=== PATIENT | female | born 1985 | race Caucasian/White ===

== ENCOUNTER 2019-03-19 11:37 | Emergency (ER) | payer BC ==
[2019-03-19 11:58] VITALS: BP 116/62
--- NOTE | 2019-03-19 12:43 | ER Document Report ---
HPI - HPI Patient complains to provider of: anxiety Time Seen by Provider: 03/19/19 12:42 Pain Level: Denies - REPRODUCTIVE Reproductive: DENIES: : Vertical Provider Document - INFECTION CONTROL TRAVEL OUTSIDE OF THE [place] IN LAST 30 DAYS: No Course - Vital Signs Vital signs: Temp Pulse Resp BP Pulse Ox 97.4 F 76 64 H 116/62 100 03/19/19 11:57 03/19/19 11:57 03/19/19 11:57 03/19/19 11:57 03/19/19 11:57 Discharge - Discharge Instructions: Anxiety ([facility]) Referrals: LOCALMD,NO [Primary Care Provider] - Follow up as needed
--- NOTE | 2019-03-19 13:18 | ER Document Report ---
ED Medical Screen (RME) - General Chief Complaint: Anxiety Stated Complaint: ANXIETY, possible SI, syncope Time Seen by Provider: 03/19/19 12:42 Primary Care Provider: INDU BARRAZA [Primary Care Provider] - Follow up as needed Mode of Arrival: Ambulatory Information source: Patient Notes: 33-year-old female who comes in stating she syncopized and was found on the grecia or by her father she lives with her bedside. She states she has had a panic attack secondary to something being wrong mechanically with her car and she not been allowed to drive to work today and secondary to that she would lose money not be able to pay her bills. She states she has passed out before in the past when she has these panic attacks however never sought care. She was having some shortness of breath. She has never been on anxiety medication. She has recently established with a psychiatrist. She also states that she felt a little suicidal this morning however she had no plan. She has no prior history of SI/HI. No visual auditory hallucinations. No inpatient psych history. No history of cutting. Denies intoxication or . She does feel safe at home. I did perform a brief triage exam and the patient will be seen by another provider in the main ED department as she was in super track today. Please refer to their note for further details of the visit. I did order basic triage labs. TRAVEL OUTSIDE OF THE [place] IN LAST 30 DAYS: No - HPI Onset: This morning - Related Data Allergies/Adverse Reactions: No Known Drug Allergies Allergy (Verified 03/19/19 11:42) Past Medical History - General Information source: Patient, Parent Physical Exam - Vital signs Vitals: Temp Pulse Resp BP Pulse Ox 97.4 F 76 64 H 116/62 100 03/19/19 11:57 03/19/19 11:57 03/19/19 11:57 03/19/19 11:57 03/19/19 11:57 repeat RR is 32 in room - General In distress: None - HEENT Head: Normocephalic - pt has purplish/blue hair and eyebrows. Conjunctiva: Normal - Respiratory Respiratory status: No respiratory distress Breath sounds: Normal - Cardiovascular Rhythm: Regular Heart sounds: Normal auscultation Normal capillary refill: Yes Course - Re-evaluation Re-evalutation: 03/19/19 13:17 will send patient to main ED for further work-up. Ordered basic labs. Please refer to other providers note for further details of the visit. This was my only involvement in patient care. - Vital Signs Vital signs: Temp Pulse Resp BP Pulse Ox 97.4 F 76 64 H 116/62 100 03/19/19 11:57 03/19/19 11:57 03/19/19 11:57 03/19/19 11:57 03/19/19 11:57 Doctor's Discharge - Discharge Clinical Impression: Suicidal ideation Syncope Qualifiers: Encounter type: initial encounter Condition: Good Instructions: Anxiety ([facility]) Referrals: LOCALMD,NO [Primary Care Provider] - Follow up as needed
--- NOTE | 2019-03-19 13:41 | RADIOLOGY REPORT (SQ) ---
EXAM DESCRIPTION: CHEST 2 VIEWS COMPLETED DATE/TIME: 03/19/2019 1:33 pm REASON FOR STUDY: syncope COMPARISON: None. EXAM PARAMETERS: NUMBER OF VIEWS: two views TECHNIQUE: Digital Frontal and Lateral radiographic views of the chest acquired. RADIATION DOSE: NA LIMITATIONS: none FINDINGS: LUNGS AND PLEURA: No opacities, masses or pneumothorax. No pleural effusion. MEDIASTINUM AND HILAR STRUCTURES: No masses or contour abnormalities. HEART AND VASCULAR STRUCTURES: Heart normal size. No evidence for failure. BONES: No acute findings. HARDWARE: None in the chest. OTHER: No other significant finding. IMPRESSION: No acute abnormality of the lungs. TECHNICAL DOCUMENTATION: JOB ID: [id number] [employer]- All Rights Reserved Reading location - IP/workstation name: [email or web address]
--- NOTE | 2019-03-19 13:49 | ER Document Report ---
ED Psych Disorder / Suicide <HELEN GALLO - Last Filed: 03/19/19 14:27> - General Mode of Arrival: Ambulatory Information source: Patient, Relative TRAVEL OUTSIDE OF THE [place] IN LAST 30 DAYS: No - HPI Patient complains to provider of: Other - Pt had an anxiety attack earlier this am after having some car issues that started last night. She had a syncopal episode afterward and when she came to, voiced some concerns about hurting herself. She states she no longer wants to hurt herself but still feels a great deal of anxiety. <WOJCIECH CMGRATH - Last Filed: 03/19/19 15:06> - General Chief Complaint: Anxiety Stated Complaint: ANXIETY, possible SI, syncope Time Seen by Provider: 03/19/19 12:42 Primary Care Provider: [facility] [Outside] - Follow up as needed LOCAL,INDU [NO LOCAL MD] - Follow up as needed - Related Data Allergies/Adverse Reactions: No Known Drug Allergies Allergy (Verified 03/19/19 11:42) Past Medical History - General Information source: Patient, Parent - Social History Smoking Status: Never Smoker Frequency of alcohol use: Rare Drug Abuse: None Family History: None Patient has suicidal ideation: No Patient has homicidal ideation: No Renal/ Medical History: Denies: Hx Peritoneal Dialysis <WOJCIECH MCGRATH - Last Filed: 03/19/19 15:06> Review of Systems - Review of Systems Constitutional: No symptoms reported EENT: No symptoms reported Cardiovascular: No symptoms reported Respiratory: No symptoms reported Gastrointestinal: No symptoms reported Musculoskeletal: No symptoms reported Neurological/Psychological: See HPI, Anxiety -: Yes All other systems reviewed and negative <WOJCIECH MCGRATH - Last Filed: 03/19/19 15:06> Physical Exam - General General appearance: Appears well In distress: None - HEENT Head: Normocephalic Mouth/Lips: Normal Mucous membranes: Normal Pharynx: Normal Neck: Normal - Respiratory Respiratory status: No respiratory distress Breath sounds: Normal - Cardiovascular Rhythm: Regular Heart sounds: Normal auscultation Murmur: No - Abdominal Inspection: Normal Tenderness: Nontender - Extremities General upper extremity: Normal inspection General lower extremity: Normal inspection - Neurological Neuro grossly intact: Yes Cognition: Normal Orientation: AAOx4 Speech: Normal Motor strength normal: LUE, RUE, LLE, RLE Sensory: Normal <WOJCIECH MCGRATH - Last Filed: 03/19/19 15:06> - Vital signs Vitals: Temp Pulse Resp BP Pulse Ox 97.4 F 76 64 H 116/62 100 03/19/19 11:57 03/19/19 11:57 03/19/19 11:57 03/19/19 11:57 03/19/19 11:57 Course - Laboratory Result Diagrams: 03/19/19 13:53 03/19/19 13:53 <HELEN GALLO - Last Filed: 03/19/19 14:27> - Laboratory Result Diagrams: 03/19/19 13:53 03/19/19 13:53 <WOJCIECH MCGRATH - Last Filed: 03/19/19 15:06> - Re-evaluation Re-evalutation: 03/19/19 15:03 Pt. was evaluated by mental health and found ok to be d/c'd on meds. Her dad will take her home. She denies SI and HI at time of d/c (WOJCIECH MCGRATH) - Vital Signs Vital signs: Temp Pulse Resp BP Pulse Ox 97.4 F 76 64 H 116/62 100 03/19/19 11:57 03/19/19 11:57 03/19/19 11:57 03/19/19 11:57 03/19/19 11:57 - Laboratory Laboratory results interpreted by me: 03/19/19 03/19/19 13:53 13:53 Hgb 11.3 L MCV 73 L MCH 22.7 L MCHC 31.1 L RDW 16.5 H Acetaminophen < 10 L Discharge <HELEN GALLO - Last Filed: 03/19/19 14:27> <WOJCIECH MCGRATH - Last Filed: 03/19/19 15:06> - Discharge Clinical Impression: Suicidal ideation, Anxiety Syncope Qualifiers: Encounter type: initial encounter Condition: Stable Disposition: HOME, SELF-CARE Instructions: Anxiety ([facility]) Additional Instructions: You have been evaluated by both medical and behavioral health providers while in the emergency department. You have been cleared from both acute medical and psychiatric services. Today you seemed to have anxiety which you built up. You mentioned these are times when you have passive suicidal thoughts. You are being provided medications to aid with depression and anxiety. You should take them as directed. You should continue therapy with Ms Mildred Downey and request referral for medication management. Therapy and medication management are beneficial together for anxiety treatment. Anxiety The physician feels that some of your health problems are being caused by anxiety. Anxiety affects your health in many ways. Anxiety alone can cause pa lpitations, sweats, chest pains, abdominal pains, shortness of breath, and headaches. It contributes to ulcer disease, high blood pressure, irritable bowel syndrome, and has been shown to cause flare-ups of many other diseases. Anxiety is not a simple disorder to treat. If the anxiety is due to recent life stresses, you may simply need time to "work through" the changes. If the anxiety is due to an underlying unhappiness with yourself or due to psychiatric disturbance, professional help will be needed. Your physician can refer you for further help if needed. Anti-anxiety medication is occasionally given if the stress is acute or if you are having trouble sleeping. Chronic or frequent use of these medications is not a good idea because the body becomes reliant on it, preventing you from dealing with life's normal stresses. DEPRESSION: Your evaluation reveals that you have mental depression. While symptoms may be vague, they often include disturbance of sleep, fatigue, loss of appetite, and general loss of interest in life. While depression may be a side effect of drugs, or a reaction to a major change in your life, many cases have no known cause. If depression is acute, and related to a major loss in your life, you can expect it to clear completely with time. If you have been depressed a long time, are prone to repeated bouts of depression or low mood, or have been thinking of suicide, get help. Depression can be treated with anti-depressant medication and counselling. Long-term depression will often take a few weeks to clear, even with appropriate medication. Follow-up care is important. SUICIDAL IDEATION: Suicidal ideation is a common medical term for thoughts about suicide, which may be as detailed as a formulated plan, without the suicidal act itself. Although most people who undergo suicidal ideation do not commit suicide, some go on to make suicide attempts. The range of suicidal ideation varies greatly from fleeting to detailed planning, role playing, and unsuccessful attempts. While thoughts about suicide are common, most people do not carry out serious actions to commit suicide. Based upon your evaluation and discussion with you, we do not believe you are currently at risk to act upon your thoughts of suicide. You have agreed to return to the Emergency Department, at any time, if you feel inclined to act upon your suicidal thoughts. FOLLOW-UP CARE: You are being provided prescriptions for Celexa 20MG daily for depression/anxiety/ruminating thoughts and Buspar 5MG twice a day for anxiety/calming effect/depression. You should take these medications as prescribed. You should follow up with your outpatient therapist as scheduled, sooner of possible, and request referral for medication management. You have been provided the [facility] Mobile Crisis number for crisis/talk therapy/linkage to other services and supports. If you experience worsening or a significant change in your symptoms, notify the physician immediately, utilize mobile crisis or return to the Emergency Department at any time for re-evaluation. Prescriptions: Buspirone HCl [Buspar 5 mg Tablet] 1 tab PO BID #30 tab Citalopram Hydrobromide [Celexa 20 mg Tablet] 20 mg PO DAILY #30 tablet Referrals: CHRISTI,NO [NO LOCAL MD] - Follow up as needed [facility] [Outside] - Follow up as needed
[2019-03-19 14:18] LABS: ABSOLUTE BASOPHILS # (AUTO) 0.1 10^3/uL (0.0-0.2); ABSOLUTE LYMPHOCYTES (AUTO) 1.5 10^3/uL (0.5-4.7); ABSOLUTE MONOCYTES (AUTO) 0.6 10^3/uL (0.1-1.4); ABSOLUTE NEUT (AUTO) 5.4 10^3/uL (1.7-8.2); BASOPHILS % (AUTO) 0.7 % (0-2); EOSINOPHILS % (AUTO) 0.3 % (0-6); HEMATOCRIT 36.5 % (36.0-47.0); HEMOGLOBIN 11.3 g/dL (12.0-15.5); LYMPHOCYTES % (AUTO) 19.6 % (13-45); MEAN CORPUSCULAR HEMOGLOBIN 22.7 pg (27.0-33.4); MEAN CORPUSCULAR HGB CONC 31.1 g/dL (32.0-36.0); MEAN CORPUSCULAR VOLUME 73 fl (80-97); MONOCYTES % (AUTO) 7.4 % (3-13); PLATELET COUNT 386 10^3/uL (150-450); RED CELL DISTRIBUTION WIDTH 16.5 % (11.5-14.0); TOTAL CELLS COUNTED % (AUTO) 100 %; WHITE BLOOD COUNT 7.5 10^3/uL (4.0-10.5)
[2019-03-19 14:48] LABS: ALANINE AMINOTRANSFERASE 25 U/L (9-52); ALBUMIN 4.5 g/dL (3.5-5.0); ALKALINE PHOSPHATASE 85 U/L (38-126); ANION GAP 9 (5-19); ASPARTATE AMINO TRANSFERASE 20 U/L (14-36); BILIRUBIN,DIRECT 0.2 mg/dL (0.0-0.4); BILIRUBIN,TOTAL 0.4 mg/dL (0.2-1.3); BLOOD UREA NITROGEN 14 mg/dL (7-20); CALCIUM 9.2 mg/dL (8.4-10.2); CARBON DIOXIDE 25 mmol/L (22-30); CHLORIDE 106 mmol/L (98-107); GLUCOSE 86 mg/dL (75-110); POTASSIUM 3.8 mmol/L (3.6-5.0); SODIUM 140.4 mmol/L (137-145); TOTAL PROTEIN 7.7 g/dL (6.3-8.2)
[2019-03-19 14:50] LABS: ACETAMINOPHEN < 10 ug/mL (10-30); ALCOHOL < 10 mg/dL (NONE DETECTED)
[2019-03-19] MEDS ORDERED: BUSPIRONE HCL 10 MG TABLET PO ONE (14:55)
[2019-03-19] MEDS ORDERED: CITALOPRAM HYDROBROMIDE 20 MG TABLET PO ONE (14:55)
[2019-03-19 14:56] LABS: CREATINE KINASE MB 0.37 ng/mL (<4.55)
[2019-03-19 14:58] LABS: TROPONIN I < 0.012 ng/mL
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
--- NOTE | 2019-03-20 19:20 | EKG REPORT ---
SEVERITY:- NORMAL ECG - SINUS RHYTHM : Confirmed by: Francesca Evangelista 20-Mar-2019 19:19:05
== END 2019-03-19 15:35 | disposition home or self-care (01) ==
LOC: ER 11:37
DX: F41.9 Anxiety disorder, unspecified (principal); R45.851 Suicidal ideations; R55 Syncope and collapse
CPT/HCPCS: 36415; 71046; 80053; 80307; 82553; 83735; 84484; 85025; 93005; 93010; 99284